=== PATIENT | male | born 1950 | race Caucasian/White ===

== ENCOUNTER 2017-12-01 21:58 | Inpatient (IN) | payer OTHER ==
[~2017-12-01] VITALS: Ht 177.8 cm; Wt 139.1 kg
[~2017-12-01 21:58] MED LIST: ASPIR 8181 M1 PO; ASPIR-LOW81 MG PO; ASPIRIN81 M1 PO; CARVEDILOL25 MG PO; COREG12.5 MG PO; ELIQUIS5 MG PO; ENDOCET 5-3251 EACH PO; GABAPENTIN300 MG PO; GLUCOPHAGE1000 MG PO; HUMULIN 70100 UNIT/2 SC; HUMULIN 70100 UNIT/3 SC; HYDROCODON-ACE1 EAC7 PO; Keflex PO; LASIX20 MG PO; LASIX80 MG PO; LEVOTHYROXINE125 MCG PO; LIPITOR40 MG PO; LISINOPRIL10 MG PO; METFORMIN HCL1000 MG PO; METFORMIN HCL500 MG PO; METHADONE10 MG PO; MULTIVITAMIN1 EAC2 PO; NOVOLOG MI100 UNIT/M SC; PRAVACHOL40 MG PO; PRAVASTATIN SOD40 MG PO; ROCEPHIN 2 GM VI2 GM IM; ROCEPHIN 2 GM VI2 GM IV; WARFARIN SODIUM5 MG PO; ZESTRIL,PRINIVI10 M1 PO; ZESTRIL,PRINIVI20 MG PO; ZESTRIL40 MG PO
[2017-12-01 22:25] LABS: BASOPHIL (%) 0.4 % (0-1); BASOPHIL COUNT 0.1 K/uL (0-0.1); EOSINOPHIL (%) 0.2 % (0-5); HEMATOCRIT 43.8 % (38.0-50.0); HEMOGLOBIN 15.7 G/DL (12.5-16.6); IMMATURE GRANULOCYTE (%) 0.5 % (0.0-0.7); LYMPHOCYTE (%) 17.7 % (15-42); LYMPHOCYTE COUNT 2.7 K/uL (1.0-2.8); MCH 32.3 PG (29.0-34.0); MCHC 35.8 G/DL (30.0-36.0); MCV 90.1 FL (86-99); MONOCYTE (%) 7.6 % (3-12); MONOCYTE COUNT 1.2 K/uL (0-0.8); NEUTROPHIL (%) 73.6 % (45-76); NEUTROPHIL COUNT 11.3 K/uL (1.8-6.4); PLATELET COUNT 256 K/uL (156-360); RBC DIS.WIDTH-CV 12.2 % (11.8-14.6); RBC DIS.WIDTH-SD 40.4 % (39-53); RED BLOOD COUNT 4.86 M/uL (4.00-5.50); WHITE BLOOD COUNT 15.4 K/uL (4.1-10.2)
[2017-12-01 22:37] LABS: AMYLASE 28 IU/L (1-118); CHLORIDE 99 mEq/L (99-109); INTER. NORMALIZED RATIO 1.1; POTASSIUM 4.3 mEq/L (3.7-5.4); SODIUM 137 mEq/L (136-147)
[2017-12-01 22:39] LABS: GLUCOSE 344 mg/dL (70-99)
[2017-12-01 22:40] LABS: PTT 30.3 SEC (25-37)
[2017-12-01 22:42] LABS: SERUM ETHYL ALCOHOL < 10 mg/dL
[2017-12-01 22:43] LABS: CREATININE 1.5 mg/dL (0.6-1.3); GFR ESTIMATE (CALCULATED) 50 mL/min/ (58.99-99999)
[2017-12-01 22:44] LABS: UREA NITROGEN (BUN) 19 mg/dL (9-23)
[2017-12-01 22:46] LABS: APPEARANCE CLEAR ((CLEAR)); BILIRUBIN NEGATIVE; BLOOD SMALL; COLOR YELLOW ((YELLOW)); GLUCOSE (STRIP) >=500; KETONES 5; LEUKOCYTES NEGATIVE; NITRITE NEGATIVE; PROTEIN (STRIP) 100; SPECIFIC GRAVITY 1.018 (1.000-1.030); UROBILINOGEN 0.2 MG/DL (0.2-1.0)
[2017-12-01 22:46] LABS: LIPASE 7 U/L (1.0-51.0)
[2017-12-01 22:49] LABS: TROP-I INTERPRETATION NEGATIVE; TROPONIN-I 0.04 ng/mL (0.0-0.30)
[2017-12-01 22:56] LABS: AMPHETAMINE NEGATIVE (500 ng/mL); BARBITURATES NEGATIVE (200 ng/mL); BENZODIAZEPINES NEGATIVE (150 ng/mL); BUPRENORPHINE NEGATIVE (10 ng/mL); COCAINE NEGATIVE (150 ng/mL); METHADONE NEGATIVE (200 ng/mL); METHAMPHETAMINE NEGATIVE (500 ng/mL); OPIATES (MORPHINE) NEGATIVE (100 ng/mL); OXYCODONE NEGATIVE (100 ng/mL); PHENCYCLIDINE NEGATIVE (25 ng/mL); PROPOXYPHENE NEGATIVE (300 ng/mL); THC CANNABINOIDS NEGATIVE (50 ng/mL); TRICYCLIC ANTIDEPRESSANTS NEGATIVE (300 ng/mL)
[2017-12-01 23:20] LABS: BACTERIA RARE /HPF; EPITHELIAL CELLS NONE SEEN /HPF; MUCUS NONE SEEN /LPF; RED BLOOD CELLS 0-5 /HPF (0-5); UCUL ADDED? NO; WHITE BLOOD CELLS 0-5 /HPF (0-5)
[2017-12-02] VITALS (23 sets, daily range): BP systolic 43–171; BP diastolic 36–157
[2017-12-02 00:16] LABS: HDL CHOLESTEROL 25 MG/DL (Desirable>=40); LDL CHOLESTEROL 101 mg/dL (Desirable<100); NON-HDL CHOLESTEROL 151 mg/dL (Desirable<160); TOTAL CHOLESTEROL 176 mg/dL (Desirable<200); TRIGLYCERIDES 251 MG/DL (Normal: <150)
[2017-12-02] MEDS ORDERED: LANTUS 10100 UNITS/ SC (00:37)
[2017-12-02] MEDS ORDERED: TYLENOL PM EX-1 EACH PO (00:37)
[2017-12-02 06:20] LABS: BASOPHIL (%) 0.3 % (0-1); BASOPHIL COUNT 0.1 K/uL (0-0.1); EOSINOPHIL (%) 0 % (0-5); HEMATOCRIT 38.9 % (38.0-50.0); IMMATURE GRANULOCYTE (%) 0.5 % (0.0-0.7); LYMPHOCYTE (%) 9.5 % (15-42); LYMPHOCYTE COUNT 1.4 K/uL (1.0-2.8); MCH 31.1 PG (29.0-34.0); MCHC 33.9 G/DL (30.0-36.0); MCV 91.7 FL (86-99); MONOCYTE (%) 7.7 % (3-12); MONOCYTE COUNT 1.1 K/uL (0-0.8); NEUTROPHIL COUNT 11.9 K/uL (1.8-6.4); PLATELET COUNT 228 K/uL (156-360); RBC DIS.WIDTH-CV 12.5 % (11.8-14.6); RBC DIS.WIDTH-SD 41.6 % (39-53); RED BLOOD COUNT 4.24 M/uL (4.00-5.50); WHITE BLOOD COUNT 14.5 K/uL (4.1-10.2)
[2017-12-02 06:25] LABS: HEMOGLOBIN 13.2 G/DL (12.5-16.6)
[2017-12-02 06:33] LABS: INTER. NORMALIZED RATIO 1.1
[2017-12-02 06:36] LABS: PTT 27.4 SEC (25-37)
[2017-12-02 06:39] LABS: CHLORIDE 103 MEQ/L (99-109); CREATININE 1.2 MG/DL (0.6-1.3); GFR ESTIMATE (CALCULATED) > 59 mL/min/ (58.99-99999); GLUCOSE 356 mg/dL (70-99); SODIUM 138 MEQ/L (136-147); UREA NITROGEN (BUN) 20 mg/dL (9-23)
[2017-12-02 11:14] LABS: HEMOGLOBIN A1c (GLYCOHEMOGLOB) 10.9 % (Below 5.7)
[2017-12-03] VITALS (24 sets, daily range): BP systolic 118–162; BP diastolic 59–103
[2017-12-03 01:55] LABS: COMMENTS - BLOOD GASES C+; DEVICE NC; O2 FLOW 4 L/MIN; PCO2 28 mm Hg (35-45); PO2 52 mm Hg (80-100); SITE RR; TOTAL RESP RATE 28 resp/min
[2017-12-03 01:56] LABS: BASE EXCESS -0.3 mEq/L (-3 to +3); BICARBONATE 21.8 mEq/L (22-26); CARBOXY HGB 1.1 % (0-5); METHEMOGLOBIN 0.3 % (0-1.5)
[2017-12-03 07:35] LABS: ALBUMIN 3.6 G/DL (3.2-4.8); ALKALINE PHOSPHATASE 88 IU/L (3-129); ALT (GPT) 21 IU/L (3-49); AST (GOT) 63 IU/L (2-34); CHLORIDE 108 MEQ/L (99-109); CREATININE 1.4 MG/DL (0.6-1.3); GFR ESTIMATE (CALCULATED) 54 mL/min/ (58.99-99999); GLUCOSE 245 mg/dL (70-99); POTASSIUM 3.5 MEQ/L (3.7-5.4); SODIUM 142 MEQ/L (136-147); TOTAL BILIRUBIN 1.4 MG/DL (0.0-1.0); TOTAL PROTEIN 6.2 G/DL (6.4-8.3); UREA NITROGEN (BUN) 22 mg/dL (9-23)
[2017-12-03 13:33] LABS: CARBOXY HGB 1.1 % (0-5); COMMENTS - BLOOD GASES A+C+; DEVICE 840; FI02 100 %; MECHANICAL RATE 20 resp/min; METHEMOGLOBIN 0.1 % (0-1.5); MODE AC; O2 SATURATION (CALCULATED) 97.7 % (95-99); PCO2 30 mm Hg (35-45); PEEP 5 CM/H20; PO2 165 mm Hg (80-100); SITE LR; TIDAL VOLUME 600 ML; TOTAL RESP RATE 20 resp/min; pH 7.47 (7.35-7.45)
[2017-12-03 13:34] LABS: BASE EXCESS -1.1 mEq/L (-3 to +3); BICARBONATE 21.8 mEq/L (22-26)
[2017-12-03 13:50] LABS: BASOPHIL (%) 0.4 % (0-1); BASOPHIL COUNT 0.1 K/uL (0-0.1); EOSINOPHIL (%) 0.3 % (0-5); HEMATOCRIT 35.2 % (38.0-50.0); HEMOGLOBIN 12.2 G/DL (12.5-16.6); IMMATURE GRANULOCYTE (%) 0.3 % (0.0-0.7); LYMPHOCYTE (%) 9.3 % (15-42); LYMPHOCYTE COUNT 1.3 K/uL (1.0-2.8); MCH 31.9 PG (29.0-34.0); MCHC 34.7 G/DL (30.0-36.0); MCV 92.1 FL (86-99); MONOCYTE (%) 11.9 % (3-12); MONOCYTE COUNT 1.7 K/uL (0-0.8); NEUTROPHIL (%) 77.8 % (45-76); NEUTROPHIL COUNT 10.8 K/uL (1.8-6.4); PLATELET COUNT 173 K/uL (156-360); RBC DIS.WIDTH-CV 12.6 % (11.8-14.6); RBC DIS.WIDTH-SD 42.6 % (39-53); RED BLOOD COUNT 3.82 M/uL (4.00-5.50); WHITE BLOOD COUNT 13.9 K/uL (4.1-10.2)
[2017-12-03 14:12] LABS: ALBUMIN 3.4 G/DL (3.2-4.8); ALKALINE PHOSPHATASE 77 IU/L (3-129); ALT (GPT) 21 IU/L (3-49); AST (GOT) 55 IU/L (2-34); CHLORIDE 106 MEQ/L (99-109); CREATININE 1.5 MG/DL (0.6-1.3); GFR ESTIMATE (CALCULATED) 50 mL/min/ (58.99-99999); GLUCOSE 288 mg/dL (70-99); POTASSIUM 3.4 MEQ/L (3.7-5.4); SODIUM 139 MEQ/L (136-147); TOTAL BILIRUBIN 1.6 MG/DL (0.0-1.0); TOTAL PROTEIN 6.3 G/DL (6.4-8.3); UREA NITROGEN (BUN) 24 mg/dL (9-23)
[2017-12-03 14:13] LABS: MAGNESIUM 1.8 mg/dl (1.3-2.7); PHOSPHORUS 2.8 mg/dL (2.5-4.9); TRIGLYCERIDES 158 MG/DL (Normal: <150)
[2017-12-03 22:49] LABS: CARBOXY HGB 0.8 % (0-5); COMMENTS - BLOOD GASES C+; DEVICE VENT; FI02 50 %; MECHANICAL RATE 20 resp/min; METHEMOGLOBIN 0.3 % (0-1.5); MODE AC; PCO2 28 mm Hg (35-45); PEEP 7 CM/H20; PO2 87 mm Hg (80-100); SITE RB; TIDAL VOLUME 580 ML; TOTAL RESP RATE 20 resp/min; pH 7.47 (7.35-7.45)
[2017-12-03 22:50] LABS: BASE EXCESS -2.1 mEq/L (-3 to +3); BICARBONATE 20.4 mEq/L (22-26)
[2017-12-04] VITALS (26 sets, daily range): BP systolic 108–154; BP diastolic 66–94
[2017-12-04 00:58] LABS: SODIUM 143 mEq/L (136-147)
[2017-12-04 01:00] LABS: GLUCOSE 271 mg/dL (70-99)
[2017-12-04 01:03] LABS: CHLORIDE 111 mEq/L (99-109); POTASSIUM 4.1 mEq/L (3.7-5.4)
[2017-12-04 01:04] LABS: CREATININE 2.5 mg/dL (0.6-1.3); GFR ESTIMATE (CALCULATED) 28 mL/min/ (58.99-99999); UREA NITROGEN (BUN) 28 mg/dL (9-23)
[2017-12-04 01:30] LABS: CREATINE KINASE 385 IU/L (1-294)
[2017-12-04 06:06] LABS: HEMATOCRIT 35.9 % (38.0-50.0); MCH 31.7 PG (29.0-34.0); MCHC 33.4 G/DL (30.0-36.0); RBC DIS.WIDTH-CV 13.1 % (11.8-14.6); RBC DIS.WIDTH-SD 45.1 % (39-53); RED BLOOD COUNT 3.78 M/uL (4.00-5.50); WHITE BLOOD COUNT 11.4 K/uL (4.1-10.2)
[2017-12-04 06:10] LABS: PLATELET COUNT 117 K/uL (156-360)
[2017-12-04 06:29] LABS: CHLORIDE 110 MEQ/L (99-109); CREATININE 2.8 MG/DL (0.6-1.3); GFR ESTIMATE (CALCULATED) 24 mL/min/ (58.99-99999); GLUCOSE 288 mg/dL (70-99); POTASSIUM 4.3 MEQ/L (3.7-5.4); SODIUM 141 MEQ/L (136-147); UREA NITROGEN (BUN) 33 mg/dL (9-23)
[2017-12-04 06:35] LABS: PHOSPHORUS 2.8 mg/dL (2.5-4.9)
[2017-12-04 06:36] LABS: MAGNESIUM 2.1 mg/dl (1.3-2.7)
[2017-12-04 11:36] LABS: COMMENTS - BLOOD GASES A+C+; DEVICE 840; FI02 70 %; MECHANICAL RATE 16 resp/min; MODE AC; PEEP 10 CM/H20; SITE RR; TIDAL VOLUME 580 ML; TOTAL RESP RATE 21 resp/min
[2017-12-04 11:37] LABS: BASE EXCESS -3.5 mEq/L (-3 to +3); BICARBONATE 20.1 mEq/L (22-26); CARBOXY HGB 0.4 % (0-5); METHEMOGLOBIN 0.3 % (0-1.5); O2 SATURATION (CALCULATED) 96.2 % (95-99); PCO2 31 mm Hg (35-45); PO2 89 mm Hg (80-100); pH 7.42 (7.35-7.45)
[2017-12-04 19:25] LABS: ALBUMIN 3.3 G/DL (3.2-4.8); ALKALINE PHOSPHATASE 104 IU/L (3-129); ALT (GPT) 19 IU/L (3-49); AST (GOT) 28 IU/L (2-34); CHLORIDE 111 MEQ/L (99-109); CREATININE 4.1 MG/DL (0.6-1.3); GFR ESTIMATE (CALCULATED) 16 mL/min/ (58.99-99999); GLUCOSE 367 mg/dL (70-99); MAGNESIUM 2.3 mg/dl (1.3-2.7); PHOSPHORUS 3.3 mg/dL (2.5-4.9); POTASSIUM 4.1 MEQ/L (3.7-5.4); SODIUM 141 MEQ/L (136-147); TOTAL BILIRUBIN 0.9 MG/DL (0.0-1.0); TOTAL PROTEIN 6.2 G/DL (6.4-8.3); UREA NITROGEN (BUN) 43 mg/dL (9-23)
[2017-12-05] VITALS (15 sets, daily range): BP systolic 100–144; BP diastolic 55–94
[2017-12-05 06:10] LABS: BASOPHIL (%) 0.2 % (0-1); EOSINOPHIL (%) 2.3 % (0-5); EOSINOPHIL COUNT 0.2 K/uL (0-0.3); HEMATOCRIT 32.3 % (38.0-50.0); HEMOGLOBIN 10.5 G/DL (12.5-16.6); IMMATURE GRANULOCYTE (%) 0.5 % (0.0-0.7); LYMPHOCYTE COUNT 1.3 K/uL (1.0-2.8); MCH 31.4 PG (29.0-34.0); MCHC 32.5 G/DL (30.0-36.0); MCV 96.7 FL (86-99); MONOCYTE (%) 10.7 % (3-12); MONOCYTE COUNT 1.1 K/uL (0-0.8); NEUTROPHIL (%) 73.3 % (45-76); NEUTROPHIL COUNT 7.5 K/uL (1.8-6.4); PLATELET COUNT 135 K/uL (156-360); RBC DIS.WIDTH-CV 13.3 % (11.8-14.6); RBC DIS.WIDTH-SD 47.5 % (39-53); RED BLOOD COUNT 3.34 M/uL (4.00-5.50); WHITE BLOOD COUNT 10.3 K/uL (4.1-10.2)
[2017-12-05 06:55] LABS: CHLORIDE 111 MEQ/L (99-109); GFR ESTIMATE (CALCULATED) 12 mL/min/ (58.99-99999); GLUCOSE 326 mg/dL (70-99); PHOSPHORUS 4.2 mg/dL (2.5-4.9); POTASSIUM 4.4 MEQ/L (3.7-5.4); SODIUM 142 MEQ/L (136-147); UREA NITROGEN (BUN) 45 mg/dL (9-23); URIC ACID 8.3 mg/dL (3.1-9.2)
[2017-12-05 07:55] LABS: BICARBONATE 16.8 mEq/L (22-26); CARBOXY HGB 0.4 % (0-5); DEVICE 840; METHEMOGLOBIN 0.3 % (0-1.5); PCO2 29 mm Hg (35-45); PO2 181 mm Hg (80-100); SITE ALINE; pH 7.37 (7.35-7.45)
[2017-12-05 07:56] LABS: FI02 70 %; MECHANICAL RATE 16 resp/min; MODE AC; PEEP 10 CM/H20; TIDAL VOLUME 580 ML; TOTAL RESP RATE 20 resp/min
[2017-12-05 20:22] LABS: BASOPHIL (%) 0.3 % (0-1); EOSINOPHIL (%) 2.2 % (0-5); EOSINOPHIL COUNT 0.2 K/uL (0-0.3); HEMATOCRIT 31.7 % (38.0-50.0); HEMOGLOBIN 10.4 G/DL (12.5-16.6); IMMATURE GRANULOCYTE (%) 0.6 % (0.0-0.7); LYMPHOCYTE (%) 12.4 % (15-42); LYMPHOCYTE COUNT 1.2 K/uL (1.0-2.8); MCH 31.8 PG (29.0-34.0); MCHC 32.8 G/DL (30.0-36.0); MCV 96.9 FL (86-99); MONOCYTE (%) 10.5 % (3-12); MONOCYTE COUNT 1.1 K/uL (0-0.8); NEUTROPHIL COUNT 7.4 K/uL (1.8-6.4); PLATELET COUNT 140 K/uL (156-360); RBC DIS.WIDTH-CV 13.3 % (11.8-14.6); RBC DIS.WIDTH-SD 48.1 % (39-53); RED BLOOD COUNT 3.27 M/uL (4.00-5.50)
[2017-12-05 20:46] LABS: ALBUMIN 3.2 G/DL (3.2-4.8); CHLORIDE 111 MEQ/L (99-109); GLUCOSE 377 mg/dL (70-99); MAGNESIUM 2.3 mg/dl (1.3-2.7); POTASSIUM 4.8 MEQ/L (3.7-5.4); SODIUM 142 MEQ/L (136-147); UREA NITROGEN (BUN) 54 mg/dL (9-23)
[2017-12-05 20:47] LABS: GFR ESTIMATE (CALCULATED) 10 mL/min/ (58.99-99999); PHOSPHORUS 5.7 mg/dL (2.5-4.9)
[2017-12-06] VITALS (8 sets, daily range): BP systolic 101–144; BP diastolic 49–69
[2017-12-06 05:26] LABS: BASOPHIL (%) 0.4 % (0-1); EOSINOPHIL (%) 2.1 % (0-5); EOSINOPHIL COUNT 0.2 K/uL (0-0.3); HEMATOCRIT 31.5 % (38.0-50.0); HEMOGLOBIN 10.4 G/DL (12.5-16.6); IMMATURE GRANULOCYTE (%) 0.9 % (0.0-0.7); LYMPHOCYTE (%) 9.4 % (15-42); MCH 31.6 PG (29.0-34.0); MCV 95.7 FL (86-99); MONOCYTE (%) 9.8 % (3-12); NEUTROPHIL (%) 77.4 % (45-76); NEUTROPHIL COUNT 8.2 K/uL (1.8-6.4); NRBC (%) 0.2 /100 WBC (0-0); PLATELET COUNT 137 K/uL (156-360); RBC DIS.WIDTH-CV 13.2 % (11.8-14.6); RBC DIS.WIDTH-SD 46.6 % (39-53); RED BLOOD COUNT 3.29 M/uL (4.00-5.50); WHITE BLOOD COUNT 10.6 K/uL (4.1-10.2)
[2017-12-06 06:00] LABS: ALBUMIN 3.3 G/DL (3.2-4.8); CHLORIDE 111 MEQ/L (99-109); CREATININE 5.1 MG/DL (0.6-1.3); GFR ESTIMATE (CALCULATED) 12 mL/min/ (58.99-99999); GLUCOSE 341 mg/dL (70-99); MAGNESIUM 2.3 mg/dl (1.3-2.7); PHOSPHORUS 4.3 mg/dL (2.5-4.9); POTASSIUM 4.3 MEQ/L (3.7-5.4); SODIUM 143 MEQ/L (136-147); UREA NITROGEN (BUN) 49 mg/dL (9-23)
[2017-12-06 10:03] LABS: CARBOXY HGB 0.5 % (0-5); METHEMOGLOBIN 0 % (0-1.5); PCO2 29 mm Hg (35-45); PO2 55 mm Hg (80-100); pH 7.38 (7.35-7.45)
[2017-12-06 10:04] LABS: BASE EXCESS -6.9 mEq/L (-3 to +3); BICARBONATE 17.2 mEq/L (22-26); DEVICE 840; FI02 100 %; MECHANICAL RATE 16 resp/min; MODE AC; PEEP 15 CM/H20; SITE ALINE; TIDAL VOLUME 580 ML; TOTAL RESP RATE 23 resp/min
[2017-12-06 13:24] LABS: ALBUMIN 3.1 G/DL (3.2-4.8); CHLORIDE 112 MEQ/L (99-109); CREATININE 4.4 MG/DL (0.6-1.3); GFR ESTIMATE (CALCULATED) 14 mL/min/ (58.99-99999); GLUCOSE 334 mg/dL (70-99); MAGNESIUM 2.3 mg/dl (1.3-2.7); PHOSPHORUS 4.3 mg/dL (2.5-4.9); POTASSIUM 4.3 MEQ/L (3.7-5.4); SODIUM 144 MEQ/L (136-147); UREA NITROGEN (BUN) 49 mg/dL (9-23)
[2017-12-06 19:55] LABS: BASOPHIL (%) 0.3 % (0-1); EOSINOPHIL (%) 3.2 % (0-5); EOSINOPHIL COUNT 0.3 K/uL (0-0.3); HEMATOCRIT 29.5 % (38.0-50.0); HEMOGLOBIN 9.8 G/DL (12.5-16.6); IMMATURE GRANULOCYTE (%) 1.2 % (0.0-0.7); LYMPHOCYTE (%) 13.5 % (15-42); LYMPHOCYTE COUNT 1.3 K/uL (1.0-2.8); MCHC 33.2 G/DL (30.0-36.0); MCV 96.4 FL (86-99); MONOCYTE COUNT 0.8 K/uL (0-0.8); NEUTROPHIL (%) 72.8 % (45-76); NEUTROPHIL COUNT 6.8 K/uL (1.8-6.4); NRBC (%) 0.5 /100 WBC (0-0); PLATELET COUNT 133 K/uL (156-360); RBC DIS.WIDTH-CV 13.2 % (11.8-14.6); RBC DIS.WIDTH-SD 47.4 % (39-53); RED BLOOD COUNT 3.06 M/uL (4.00-5.50); WHITE BLOOD COUNT 9.3 K/uL (4.1-10.2)
[2017-12-06 20:17] LABS: MAGNESIUM 2.5 mg/dl (1.3-2.7); PHOSPHORUS 5.5 mg/dL (2.5-4.9)
[2017-12-07 00:02] VITALS: BP 127/73
[2017-12-07 00:49] LABS: DEVICE VENT; FI02 50 %; MECHANICAL RATE 24 resp/min; MODE ACVC; PCO2 32 mm Hg (35-45); PEEP 18 CM/H20; PO2 79 mm Hg (80-100); SITE ALINE; TIDAL VOLUME 500 ML; TOTAL RESP RATE 29 resp/min; pH 7.35 (7.35-7.45)
[2017-12-07 00:50] LABS: BICARBONATE 17.7 mEq/L (22-26); CARBOXY HGB 0.7 % (0-5); METHEMOGLOBIN 0.4 % (0-1.5); O2 SATURATION (CALCULATED) 95.2 % (95-99)
[2017-12-07 05:17] LABS: BASOPHIL (%) 0.4 % (0-1); BASOPHIL COUNT 0.1 K/uL (0-0.1); EOSINOPHIL (%) 3.5 % (0-5); EOSINOPHIL COUNT 0.4 K/uL (0-0.3); HEMATOCRIT 30.8 % (38.0-50.0); HEMOGLOBIN 10.1 G/DL (12.5-16.6); IMMATURE GRANULOCYTE (%) 1.2 % (0.0-0.7); LYMPHOCYTE (%) 11.1 % (15-42); LYMPHOCYTE COUNT 1.2 K/uL (1.0-2.8); MCH 31.5 PG (29.0-34.0); MCHC 32.8 G/DL (30.0-36.0); MONOCYTE (%) 9.9 % (3-12); MONOCYTE COUNT 1.1 K/uL (0-0.8); NEUTROPHIL (%) 73.9 % (45-76); NEUTROPHIL COUNT 8.3 K/uL (1.8-6.4); NRBC (%) 0.4 /100 WBC (0-0); PLATELET COUNT 139 K/uL (156-360); RBC DIS.WIDTH-CV 13.2 % (11.8-14.6); RBC DIS.WIDTH-SD 47.1 % (39-53); RED BLOOD COUNT 3.21 M/uL (4.00-5.50); WHITE BLOOD COUNT 11.2 K/uL (4.1-10.2)
[2017-12-07 05:57] LABS: CHLORIDE 111 MEQ/L (99-109); CREATININE 4.6 MG/DL (0.6-1.3); GFR ESTIMATE (CALCULATED) 14 mL/min/ (58.99-99999); GLUCOSE 276 mg/dL (70-99); MAGNESIUM 2.5 mg/dl (1.3-2.7); PHOSPHORUS 5.9 mg/dL (2.5-4.9); POTASSIUM 4.6 MEQ/L (3.7-5.4); SODIUM 144 MEQ/L (136-147); UREA NITROGEN (BUN) 61 mg/dL (9-23)
[2017-12-07 08:02] VITALS: BP 104/59
[2017-12-07 13:50] LABS: ALBUMIN 2.8 G/DL (3.2-4.8); CHLORIDE 111 MEQ/L (99-109); CREATININE 4.3 MG/DL (0.6-1.3); GFR ESTIMATE (CALCULATED) 15 mL/min/ (58.99-99999); GLUCOSE 353 mg/dL (70-99); MAGNESIUM 2.5 mg/dl (1.3-2.7); PHOSPHORUS 5.8 mg/dL (2.5-4.9); POTASSIUM 4.5 MEQ/L (3.7-5.4); SODIUM 145 MEQ/L (136-147); UREA NITROGEN (BUN) 65 mg/dL (9-23)
[2017-12-07 19:56] LABS: BASOPHIL (%) 0.5 % (0-1); BASOPHIL COUNT 0.1 K/uL (0-0.1); EOSINOPHIL (%) 2.8 % (0-5); EOSINOPHIL COUNT 0.4 K/uL (0-0.3); HEMATOCRIT 32.8 % (38.0-50.0); HEMOGLOBIN 11.1 G/DL (12.5-16.6); IMMATURE GRANULOCYTE (%) 1.8 % (0.0-0.7); LYMPHOCYTE (%) 9.6 % (15-42); LYMPHOCYTE COUNT 1.4 K/uL (1.0-2.8); MCH 32.5 PG (29.0-34.0); MCHC 33.8 G/DL (30.0-36.0); MCV 95.9 FL (86-99); MONOCYTE (%) 8.5 % (3-12); MONOCYTE COUNT 1.3 K/uL (0-0.8); NEUTROPHIL (%) 76.8 % (45-76); NEUTROPHIL COUNT 11.2 K/uL (1.8-6.4); NRBC (%) 0.5 /100 WBC (0-0); PLATELET COUNT 158 K/uL (156-360); RBC DIS.WIDTH-CV 13.2 % (11.8-14.6); RBC DIS.WIDTH-SD 46.2 % (39-53); RED BLOOD COUNT 3.42 M/uL (4.00-5.50); WHITE BLOOD COUNT 14.6 K/uL (4.1-10.2)
[2017-12-07 20:10] LABS: MAGNESIUM 2.5 mg/dL (1.3-2.7)
[2017-12-07 20:15] LABS: PHOSPHORUS 5.4 mg/dL (2.5-4.9)
[2017-12-08 00:17] LABS: BASE EXCESS -5.4 mEq/L (-3 to +3); BICARBONATE 19.1 mEq/L (22-26); CARBOXY HGB 1 % (0-5); COMMENTS - BLOOD GASES C+A+; DEVICE VENT; FI02 50 %; MECHANICAL RATE 24 resp/min; METHEMOGLOBIN 0.4 % (0-1.5); MODE AC; PCO2 33 mm Hg (35-45); PEEP 9 CM/H20; PO2 70 mm Hg (80-100); SITE RR; TIDAL VOLUME 500 ML; TOTAL RESP RATE 31 resp/min; pH 7.37 (7.35-7.45)
[2017-12-08 05:44] LABS: BASOPHIL (%) 0.5 % (0-1); BASOPHIL COUNT 0.1 K/uL (0-0.1); EOSINOPHIL (%) 2.2 % (0-5); EOSINOPHIL COUNT 0.3 K/uL (0-0.3); HEMATOCRIT 31.6 % (38.0-50.0); HEMOGLOBIN 10.2 G/DL (12.5-16.6); IMMATURE GRANULOCYTE (%) 2.1 % (0.0-0.7); LYMPHOCYTE (%) 12.3 % (15-42); LYMPHOCYTE COUNT 1.6 K/uL (1.0-2.8); MCH 31.1 PG (29.0-34.0); MCHC 32.3 G/DL (30.0-36.0); MCV 96.3 FL (86-99); MONOCYTE (%) 9.2 % (3-12); MONOCYTE COUNT 1.2 K/uL (0-0.8); NEUTROPHIL (%) 73.7 % (45-76); NEUTROPHIL COUNT 9.7 K/uL (1.8-6.4); NRBC (%) 0.8 /100 WBC (0-0); PLATELET COUNT 152 K/uL (156-360); RBC DIS.WIDTH-CV 13.3 % (11.8-14.6); RBC DIS.WIDTH-SD 47.4 % (39-53); RED BLOOD COUNT 3.28 M/uL (4.00-5.50); WHITE BLOOD COUNT 13.1 K/uL (4.1-10.2)
[2017-12-08 06:15] LABS: ALBUMIN 2.9 G/DL (3.2-4.8); CHLORIDE 110 MEQ/L (99-109); CREATININE 4.2 MG/DL (0.6-1.3); GFR ESTIMATE (CALCULATED) 15 mL/min/ (58.99-99999); GLUCOSE 396 mg/dL (70-99); PHOSPHORUS 5.6 mg/dL (2.5-4.9); POTASSIUM 4.1 MEQ/L (3.7-5.4); SODIUM 145 MEQ/L (136-147); UREA NITROGEN (BUN) 72 mg/dL (9-23)
[2017-12-08 06:22] LABS: ALBUMIN 2.8 G/DL (3.2-4.8); ALKALINE PHOSPHATASE 124 IU/L (3-129); ALT (GPT) 15 IU/L (3-49); AST (GOT) 20 IU/L (2-34); CHLORIDE 110 MEQ/L (99-109); CREATININE 4.2 MG/DL (0.6-1.3); GFR ESTIMATE (CALCULATED) 15 mL/min/ (58.99-99999); GLUCOSE 378 mg/dL (70-99); PHOSPHORUS 5.7 mg/dL (2.5-4.9); POTASSIUM 4.2 MEQ/L (3.7-5.4); SODIUM 144 MEQ/L (136-147); TOTAL PROTEIN 5.7 G/DL (6.4-8.3); UREA NITROGEN (BUN) 71 mg/dL (9-23)
[2017-12-08 06:26] LABS: TOTAL BILIRUBIN 0.7 MG/DL (0.0-1.0)
[2017-12-08 20:04] VITALS: BP 174/73
[2017-12-08 20:12] LABS: BASOPHIL (%) 0.5 % (0-1); BASOPHIL COUNT 0.1 K/uL (0-0.1); EOSINOPHIL (%) 1.7 % (0-5); EOSINOPHIL COUNT 0.3 K/uL (0-0.3); HEMATOCRIT 32.8 % (38.0-50.0); HEMOGLOBIN 10.9 G/DL (12.5-16.6); IMMATURE GRANULOCYTE (%) 2.6 % (0.0-0.7); LYMPHOCYTE (%) 10.1 % (15-42); LYMPHOCYTE COUNT 1.5 K/uL (1.0-2.8); MCH 31.6 PG (29.0-34.0); MCHC 33.2 G/DL (30.0-36.0); MCV 95.1 FL (86-99); MONOCYTE COUNT 1.2 K/uL (0-0.8); NEUTROPHIL (%) 77.1 % (45-76); NEUTROPHIL COUNT 11.7 K/uL (1.8-6.4); NRBC (%) 1.1 /100 WBC (0-0); PLATELET COUNT 164 K/uL (156-360); RBC DIS.WIDTH-CV 13.2 % (11.8-14.6); RBC DIS.WIDTH-SD 45.7 % (39-53); RED BLOOD COUNT 3.45 M/uL (4.00-5.50); WHITE BLOOD COUNT 15.1 K/uL (4.1-10.2)
[2017-12-08 20:34] LABS: MAGNESIUM 2.4 mg/dl (1.3-2.7); PHOSPHORUS 4.8 mg/dL (2.5-4.9)
[2017-12-08 23:02] VITALS: BP 131/65
[2017-12-09 00:02] VITALS: BP 154/71
[2017-12-09 03:50] LABS: CARBOXY HGB 1.1 % (0-5); COMMENTS - BLOOD GASES C+; DEVICE VENT; FI02 70 %; MECHANICAL RATE 24 resp/min; METHEMOGLOBIN 0.3 % (0-1.5); MODE AC; PCO2 37 mm Hg (35-45); PEEP 9 CM/H20; PO2 60 mm Hg (80-100); SITE A-LINE; TIDAL VOLUME 500 ML; TOTAL RESP RATE 30 resp/min; pH 7.36 (7.35-7.45)
[2017-12-09 03:51] LABS: BASE EXCESS -4.1 mEq/L (-3 to +3); BICARBONATE 20.9 mEq/L (22-26)
[2017-12-09 05:25] LABS: BASOPHIL (%) 0.6 % (0-1); BASOPHIL COUNT 0.1 K/uL (0-0.1); EOSINOPHIL (%) 1.5 % (0-5); EOSINOPHIL COUNT 0.3 K/uL (0-0.3); HEMATOCRIT 35.6 % (38.0-50.0); HEMOGLOBIN 11.3 G/DL (12.5-16.6); IMMATURE GRANULOCYTE (%) 2.9 % (0.0-0.7); LYMPHOCYTE (%) 9.5 % (15-42); LYMPHOCYTE COUNT 1.7 K/uL (1.0-2.8); MCH 30.9 PG (29.0-34.0); MCHC 31.7 G/DL (30.0-36.0); MCV 97.3 FL (86-99); MONOCYTE COUNT 1.7 K/uL (0-0.8); NEUTROPHIL (%) 75.5 % (45-76); NEUTROPHIL COUNT 13.2 K/uL (1.8-6.4); NRBC (%) 1.1 /100 WBC (0-0); PLATELET COUNT 188 K/uL (156-360); RBC DIS.WIDTH-CV 13.4 % (11.8-14.6); RED BLOOD COUNT 3.66 M/uL (4.00-5.50); WHITE BLOOD COUNT 17.4 K/uL (4.1-10.2)
[2017-12-09 06:13] LABS: CHLORIDE 109 MEQ/L (99-109); CREATININE 3.7 MG/DL (0.6-1.3); GFR ESTIMATE (CALCULATED) 18 mL/min/ (58.99-99999); PHOSPHORUS 5.3 mg/dL (2.5-4.9); POTASSIUM 3.9 MEQ/L (3.7-5.4); SODIUM 147 MEQ/L (136-147); UREA NITROGEN (BUN) 76 mg/dL (9-23)
[2017-12-09 06:30] LABS: GLUCOSE 412 mg/dL (70-99)
[2017-12-09 08:02] VITALS: BP 173/78
[2017-12-09 18:00] VITALS: BP 121/63
[2017-12-09 18:50] LABS: COMMENTS - BLOOD GASES C+; DEVICE 840; FI02 100 %; MECHANICAL RATE 24 resp/min; MODE A/C; PEEP 12 CM/H20; SITE ALINE; TIDAL VOLUME 500 ML; TOTAL RESP RATE 24 resp/min
[2017-12-09 18:51] LABS: BASE EXCESS -9.9 mEq/L (-3 to +3); BICARBONATE 18.6 mEq/L (22-26); METHEMOGLOBIN 0.4 % (0-1.5); PCO2 51 mm Hg (35-45)
[2017-12-09 18:52] LABS: PO2 46 mm Hg (80-100); pH 7.17 (7.35-7.45)
[2017-12-09 20:14] LABS: BASOPHIL (%) 0.4 % (0-1); BASOPHIL COUNT 0.1 K/uL (0-0.1); EOSINOPHIL (%) 0.1 % (0-5); HEMATOCRIT 36.7 % (38.0-50.0); HEMOGLOBIN 11.9 G/DL (12.5-16.6); LYMPHOCYTE (%) 5.5 % (15-42); LYMPHOCYTE COUNT 1.1 K/uL (1.0-2.8); MCH 32.1 PG (29.0-34.0); MCHC 32.4 G/DL (30.0-36.0); MCV 98.9 FL (86-99); MONOCYTE (%) 10.8 % (3-12); MONOCYTE COUNT 2.1 K/uL (0-0.8); NEUTROPHIL (%) 80.2 % (45-76); NEUTROPHIL COUNT 15.9 K/uL (1.8-6.4); NRBC (%) 0.7 /100 WBC (0-0); PLATELET COUNT 200 K/uL (156-360); RBC DIS.WIDTH-CV 13.4 % (11.8-14.6); RBC DIS.WIDTH-SD 48.1 % (39-53); RED BLOOD COUNT 3.71 M/uL (4.00-5.50); WHITE BLOOD COUNT 19.8 K/uL (4.1-10.2)
[2017-12-09 20:21] LABS: MAGNESIUM 2.5 mg/dL (1.3-2.7)
[2017-12-09 20:27] LABS: PHOSPHORUS 7.6 mg/dL (2.5-4.9)
[2017-12-09 21:56] VITALS: BP 112/65
[2017-12-09 23:09] VITALS: BP 103/74
[2017-12-10 00:03] VITALS: BP 125/76
[2017-12-10 05:05] VITALS: BP 102/67
[2017-12-10 05:31] LABS: BASOPHIL (%) 0.4 % (0-1); BASOPHIL COUNT 0.1 K/uL (0-0.1); EOSINOPHIL (%) 0.1 % (0-5); HEMATOCRIT 36.6 % (38.0-50.0); HEMOGLOBIN 11.6 G/DL (12.5-16.6); IMMATURE GRANULOCYTE (%) 2.1 % (0.0-0.7); LYMPHOCYTE COUNT 1.4 K/uL (1.0-2.8); MCH 30.8 PG (29.0-34.0); MCHC 31.7 G/DL (30.0-36.0); MCV 97.1 FL (86-99); MONOCYTE (%) 13.3 % (3-12); MONOCYTE COUNT 2.1 K/uL (0-0.8); NEUTROPHIL (%) 75.1 % (45-76); NRBC (%) 1.8 /100 WBC (0-0); PLATELET COUNT 174 K/uL (156-360); RBC DIS.WIDTH-CV 13.4 % (11.8-14.6); RBC DIS.WIDTH-SD 47.7 % (39-53); RED BLOOD COUNT 3.77 M/uL (4.00-5.50)
[2017-12-10 06:33] LABS: CHLORIDE 110 MEQ/L (99-109); GFR ESTIMATE (CALCULATED) 13 mL/min/ (58.99-99999); PHOSPHORUS 6.4 mg/dL (2.5-4.9); POTASSIUM 4.3 MEQ/L (3.7-5.4); SODIUM 148 MEQ/L (136-147)
[2017-12-10 06:41] LABS: CREATININE 4.7 MG/DL (0.6-1.3); GLUCOSE 433 mg/dL (70-99); UREA NITROGEN (BUN) 104 mg/dL (9-23)
[2017-12-10 08:03] VITALS: BP 124/63
[2017-12-10 11:58] LABS: MAGNESIUM 2.6 mg/dl (1.3-2.7)
[2017-12-10 20:07] VITALS: BP 109/64
[2017-12-10 21:12] VITALS: BP 130/72
== END 2017-12-10 21:58 | DRG 64 ==
LOC: EME 21:58 → EDOF 12-02 00:04 → 4WEST 12-02 00:04 → ENRESERV 12-02 00:06 → 4WEST 12-02 01:16 → EDOF 12-02 01:16 → ENRESERV 12-02 01:21 → 4WEST 12-02 03:53
PROVIDERS: Emergency Medicine; Internal Medicine; Internal Medicine Nephrology; Obstetrics & Gynecology; Specialist
DX: I61.4 Nontraumatic intracerebral hemorrhage in cerebellum (principal); J96.01 Acute respiratory failure with hypoxia; J69.0 Pneumonitis due to inhalation of food and vomit; R40.20 Unspecified coma; N17.9 Acute kidney failure, unspecified; I13.0 Hypertensive heart and chronic kidney disease with heart failure and stage 1 through stage 4 chronic kidney disease, or unspecified chronic kidney disease; I42.0 Dilated cardiomyopathy; E11.22 Type 2 diabetes mellitus with diabetic chronic kidney disease; E87.2 Acidosis; T17.590A Other foreign object in bronchus causing asphyxiation, initial encounter; I48.2 Chronic atrial fibrillation; Z68.41 Body mass index [BMI] 40.0-44.9, adult; I50.9 Heart failure, unspecified; E66.01 Morbid (severe) obesity due to excess calories; I27.20 Pulmonary hypertension, unspecified; L03.116 Cellulitis of left lower limb; E03.9 Hypothyroidism, unspecified; Z87.891 Personal history of nicotine dependence; J98.19 Other pulmonary collapse; I25.10 Atherosclerotic heart disease of native coronary artery without angina pectoris; Z79.4 Long term (current) use of insulin; E11.51 Type 2 diabetes mellitus with diabetic peripheral angiopathy without gangrene; I16.1 Hypertensive emergency; E86.9 Volume depletion, unspecified; E78.5 Hyperlipidemia, unspecified; Z79.82 Long term (current) use of aspirin; Z51.5 Encounter for palliative care; G83.20 Monoplegia of upper limb affecting unspecified side; Z86.73 Personal history of transient ischemic attack (TIA), and cerebral infarction without residual deficits; N18.2 Chronic kidney disease, stage 2 (mild)
CPT/HCPCS: 36600; 70450; 71045; 76770; 80047; 80048; 80048 91; 80053; 80061; 80069; 80202; 81003; 82010; 82150; 82436; 82550; 82550 91; 82570; 82803; 82948; 83036; 83605; 83690; 83735; 83880; 83930; 84100; 84133; 84300; 84443; 84478; 84484; 84540; 84550; 85025; 85025 91; 85027; 85610; 85730; 86850; 86900; 86901; 87040; 87070; 87086; 87205; 87641; 87801; 89190; 93005; 93306; 94002; 94003; 94640; 94760; 94799; 99281; 99285; C1751; C1752; C1753; C1788; G0480; J0295; J0330; J0456; J0692; J0696; J1265; J1450; J1630; J1644; J1815; J1940; J1953; J2060; J2704; J3010; J3370; J3475; J7030; J7040; J7050; P9045; S0028